=== PATIENT | male | born 1950 | race Caucasian/White ===

== ENCOUNTER 2017-06-06 18:36 | Emergency (ER) | payer OTHER ==
--- NOTE | 2017-06-06 19:06 | ERPHSYRPT ---
- History of Present Illness Time Seen by Provider: 06/06/17 18:55 Source: patient Exam Limitations: no limitations Patient Subjective Stated Complaint: "I pinched my finger with some plyers about 30 minutes ago. 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 Occurred: just prior to arrival Allergies/Adverse Reactions: No Known Drug Allergies Allergy (Unverified 06/06/17 18:47) Home Medications: Atorvastatin Calcium 10 mg PO DAILY 06/06/17 [History] Doxazosin Mesylate 2 mg [Cardura 2 mg] 2 mg PO DAILY 06/06/17 [History] Lisinopril 10 mg PO DAILY 06/06/17 [History] Hx Tetanus, Diphtheria Vaccination/Date Given: No - Review of Systems Skin: Other (LACERATION TO LEFT RING FINGER) - Past Medical History Neurological History: No Pertinent History ENT History: No Pertinent History Cardiac History: High Cholesterol, Hypertension Respiratory History: No Pertinent History Endocrine Medical History: No Pertinent History Musculoskeletal History: Arthritis GI Medical History: No Pertinent History History: Other Other Medical History: enlarged prostate - Past Surgical History Past Surgical History: Yes Musculoskeletal: Other Other Surgical History: right shoulder - Social History Smoking Status: Never smoker Drug Use: none - Nursing Vital Signs Nursing Vital Signs: Initial Vital Signs Temperature 98.8 F 06/06/17 18:41 Pulse Rate 82 06/06/17 18:41 Blood Pressure 178/81 06/06/17 18:41 O2 Sat by Pulse Oximetry 97 06/06/17 18:41 Pain Scale Pain Intensity 1 - Physical Exam General Appearance: alert Shoulder Exam: normal ROM Elbow/Forearm Exam: normal ROM Wrist Exam: normal ROM Hand Exam: normal ROM, laceration (1 CM LACERATION TO THE PAD OF THE LEFT RING FINGER) Neuro/Tendon Exam: normal sensation Mental Status Exam: alert, cooperative SpO2 Interpretation: normal SpO2: 97 Oxygen Delivery: Room Air Procedures - Laceration/Wound Repair Left Finger Wound Location: Left, hand (RING FINGER) Wound Length (cm): 1 Wound's Depth, Shape: superficial Wound Explored: clean Irrigated: Yes Hibiclens Prep: Yes Anesthesia: 1% Lidocaine Volume Anesthetic (ccs): 1 Wound Repaired With: sutures Suture Size/Type: 4-0, prolene Number of Sutures: 4 Layer Closure?: No - Course Nursing assessment & vital signs reviewed: Yes Ordered Tests: Active Orders 24 hr Category Date Time Status Prepare for Sutures STAT Care 06/06/17 19:00 Active Sutures STAT Care 06/06/17 19:01 Active Wound Care STAT Care 06/06/17 19:00 Active Medication Summary Discontinued Medications Generic Name Dose Route Start Last Admin Trade Name Freq PRN Reason Stop Dose Admin Bacitracin 0.9 gm 06/06/17 19:00 06/06/17 19:21 Baciguent Packet TP 06/06/17 19:01 1 gm STAT ONE Administration Bacitracin Confirm 06/06/17 19:17 Baciguent Packet Administered 06/06/17 19:18 Dose 1 gm .ROUTE .STK-MED ONE Cephalexin HCl 500 mg 06/06/17 19:02 06/06/17 19:21 Keflex 500 Mg PO 06/06/17 19:03 500 mg STAT ONE Administration Cephalexin HCl Confirm 06/06/17 19:18 Keflex 500 Mg Administered 06/06/17 19:19 Dose 500 mg .ROUTE .STK-MED ONE Diphtheria/Tetanus/Acell Pertussis 0.5 ml 06/06/17 19:00 06/06/17 19:24 Adacel Vial IM 06/06/17 19:01 0.5 ml .ONCE ONE Administration Diphtheria/Tetanus/Acell Pertussis Confirm 06/06/17 19:18 Adacel Vial Administered 06/06/17 19:19 Dose 0.5 ml IM .STK-MED ONE Lidocaine HCl 5 ml 06/06/17 19:00 06/06/17 19:22 Xylocaine 1% Hcl 20 Ml Mdv IJ 06/06/17 19:01 5 ml STAT ONE Administration Lidocaine HCl Confirm 06/06/17 19:18 Xylocaine 1% Hcl 20 Ml Mdv Administered 06/06/17 19:19 Dose 1 ml .ROUTE .STK-MED ONE - Departure Time of Disposition: 19:43 Departure Disposition: Home Clinical Impression: 1 CM LACERATION TO LEFT RING FINGER Condition: Stable Critical Care Time: No Referrals: TONIO TREVIZO [Primary Care Provider] - Instructions: Care for a Laceration After Repair Additional Instructions: FOLLOW UP WITH PRIVATE DOCTOR TOMORROW. KEEP CLEAN & DRY. NEOSPORIN & BANDAGE DAILY TO LEFT RING FINGER WOUND FOR THE NEXT 10 DAYS. HAVE SUTURES REMOVED IN 10 DAYS. Prescriptions: Cephalexin Monohydrate [Keflex] 500 mg PO TID #20 capsule
[2017-06-06] MEDS ORDERED: BACIGUENT PACKET ONE (19:17)
[2017-06-06] MEDS ORDERED: KEFLEX 500 MG ONE (19:18)
[2017-06-06] MEDS ORDERED: Adacel Vial IM ONE (19:18)
[2017-06-06] MEDS ORDERED: XYLOCAINE 1% HCL 20 ML MDV ONE (19:18)
[2017-06-06] MEDS: KEFLEX 500 MG PO ONE (19:21)
[2017-06-06] MEDS: BACIGUENT PACKET TP ONE (19:21)
[2017-06-06] MEDS: XYLOCAINE 1% HCL 20 ML MDV IJ ONE (19:22)
[2017-06-06] MEDS: Adacel Vial IM ONE (19:24)
[2017-06-06 20:12] VITALS: BP 168/78; PULSE 80; O2SAT 99
== END 2017-06-06 20:00 | disposition home or self-care (01) ==
LOC: ED 18:36
PROC: 0HQGXZZ Repair Left Hand Skin, External Approach (ICD-10-PCS; principal; 2017-06-06)
DX: S61.215A Laceration without foreign body of left ring finger without damage to nail, initial encounter (principal); W27.8XXA Contact with other nonpowered hand tool, initial encounter
CPT/HCPCS: 12001; 90471; 90715; 99283; 99284; A9270-GY

== ENCOUNTER 2017-11-22 03:19 | Emergency (ER) | payer SELFPAY ==
[2017-11-22] MEDS ORDERED: Sodium Chloride 0.9% 1000 ML 1,000 ML IV SCH (03:45)
[2017-11-22] MEDS ORDERED: Sodium Chloride 0.9% 1000 ML 1,000 ML ONE (03:49)
--- NOTE | 2017-11-22 03:50 | ERPHSYRPT ---
- History of Present Illness Time Seen by Provider: 11/22/17 03:35 Source: patient, family () Exam Limitations: no limitations Patient Subjective Stated Complaint: SOB Triage Nursing Assessment: Pt presents to the ED by EMS with complaints of SOB. Pt had mitral valve repair at [facility] on 11/08/2017 and states he has had SOB since surgery. Pt seen by PCP yesterday for same. Pt states worsening tonight. Pt A&O x4, no distress noted. Pt also complaints of dizziness, denies pain. Physician History: TWO WEEKS AGO PT HAD MITRAL VALVE REPAIR AT [facility] AND SINCE HAS HAD DYSPNEA ON EXERTION. FOR THE PAST 5 HOURS PT HAS HAD GENERALIZED WEAKNESS, DIAPHORESIS, DISEQUILIBRIUM AND WORSENING DYSPNEA. PT DENIES NAUSEA, VOMITING, ABDOMINAL PAIN, DIARRHEA, HEADACHE, NUMBNESS. LAST BM WAS YESTERDAY & WNL. Allergies/Adverse Reactions: No Known Drug Allergies Allergy (Verified 11/22/17 03:43) Home Medications: Atorvastatin Calcium 10 mg PO DAILY 06/06/17 [History] Doxazosin Mesylate 2 mg [Cardura 2 mg] 8 mg PO DAILY 06/06/17 [History] Lisinopril 5 mg PO DAILY 06/06/17 [History] Aspirin EC 325 mg [Ecotrin 325 MG] 325 mg PO DAILY 11/22/17 [History] Metoprolol Tartrate 25 mg [Lopressor 25MG Tab] 25 mg PO BID 11/22/17 [ History] Hx Tetanus, Diphtheria Vaccination/Date Given: Yes Hx Influenza Vaccination/Date Given: No Hx Pneumococcal Vaccination/Date Given: Yes - Review of Systems Constitutional: Weakness (GENERALIZED), No Fever, No Chills Respiratory: Dyspnea on Exertion (SUÁREZ) Abdominal/Gastrointestinal: No Abdominal Pain, No Nausea, No Vomiting, No Diarrhea Neurological: Dizziness, No Headache Endocrine: Excessive Sweating All Other Systems: Reviewed and Negative - Past Medical History Neurological History: No Pertinent History ENT History: No Pertinent History Cardiac History: High Cholesterol, Hypertension Respiratory History: No Pertinent History Endocrine Medical History: No Pertinent History Musculoskeletal History: Arthritis GI Medical History: No Pertinent History History: Other Other Medical History: enlarged prostate - Past Surgical History Past Surgical History: Yes Respiratory: Chest Surgery Musculoskeletal: Other Other Surgical History: right shoulder, Mitral Valve repair - Social History Smoking Status: Never smoker Exposure to second hand smoke: No Drug Use: none Patient Lives Alone: No - Nursing Vital Signs Nursing Vital Signs: Initial Vital Signs Temperature 98.8 F 11/22/17 03:21 Pulse Rate 129 H 11/22/17 03:21 Respiratory Rate 20 11/22/17 03:21 Blood Pressure 112/81 11/22/17 03:21 O2 Sat by Pulse Oximetry 99 11/22/17 03:21 Pain Scale Pain Intensity 0 - Physical Exam General Appearance: alert Eye Exam: PERRL/EOMI Ears, Nose, Throat Exam: TMs normal, pharynx normal, moist mucous membranes Neck Exam: normal inspection Respiratory Exam: other (MINIMALLY DECREASED BREATH SOUNDS OVER RIGHT POSTERIOR PLASENCIA.) Cardiovascular Exam: tachycardia Gastrointestinal/Abdomen Exam: soft, normal bowel sounds Back Exam: normal range of motion Extremity Exam: normal inspection, No pedal edema Neurologic Exam: alert, cooperative Skin Exam: other (HEALING INCISIONS ON CHEST) SpO2 Interpretation: normal SpO2: 99 Oxygen Delivery: Room Air - Course Nursing assessment & vital signs reviewed: Yes EKG Interpreted by Me: RATE ([id number]), Sinus Tach, NORMAL AXIS, Non-specific ST Changes - Radiology Exams Chest X-ray Interpretation: Interpreted by me (INFILTRATE RIGHT LUNG) Ordered Tests: Active Orders 24 hr Category Date Time Status EKG-ER Only STAT Care 11/22/17 03:44 Active IV Insertion STAT Care 11/22/17 03:44 Active Oxygen-ED Only NASAL CANNULA 4 lpm Care 11/22/17 03:44 Active Pulse Oximetry (ED) STAT Care 11/22/17 03:44 Active CHEST 1 VIEW (PORTABLE) Stat Exams 11/22/17 03:45 Taken AMYLASE Stat Lab 11/22/17 04:01 Completed BLOOD CULTURE Stat Lab 11/22/17 04:32 Received CBC W DIFF Stat Lab 11/22/17 04:01 Completed CMP Stat Lab 11/22/17 04:01 Completed CULTURE,SPUTUM Stat Lab 11/22/17 04:18 Uncollected D-DIMER QUANTITATION Stat Lab 11/22/17 04:01 Completed LIPASE Stat Lab 11/22/17 04:01 Completed MAGNESIUM Stat Lab 11/22/17 04:01 Completed NT PRO BNP Stat Lab 11/22/17 04:01 Completed PROTIME WITH INR Stat Lab 11/22/17 04:01 Completed PTT Stat Lab 11/22/17 04:01 Completed STREP SCREEN-BETA A Stat Lab 11/22/17 04:19 Uncollected TROPONIN Q3H Lab 11/22/17 04:01 Completed TROPONIN Q3H Lab 11/22/17 06:45 Ordered TROPONIN Q3H Lab 11/22/17 09:45 Ordered TROPONIN Q3H Lab 11/22/17 12:45 Ordered TROPONIN Q3H Lab 11/22/17 15:45 Ordered Respiratory Nebulizer STAT RT 11/22/17 04:25 Completed Medication Summary Generic Name Dose Route Start Last Admin Trade Name Freq PRN Reason Stop Dose Admin Sodium Chloride 1,000 mls @ 100 mls/hr 11/22/17 03:45 11/22/17 03:51 Sodium Chloride 0.9% 1000 Ml IV 12/22/17 03:44 100 mls/hr .Q10H DONALD Administration Azithromycin 500 mg in 250 mls @ 250 mls/hr 11/22/17 04:18 11/22/17 04:55 Zithromax 500 Mg/ 250 Ml Nacl Premix IV 11/22/17 05:17 250 mls/hr STAT STA Administration Discontinued Medications Generic Name Dose Route Start Last Admin Trade Name Freq PRN Reason Stop Dose Admin Ceftriaxone Sodium/Dextrose 1 g in 50 mls @ 100 mls/hr 11/22/17 04:18 04:25 Rocephin 1 Gm-D5w 50 Ml Bag IV 11/22/17 04:47 100 mls/hr STAT STA Administration Ceftriaxone Sodium/Dextrose Confirm 11/22/17 04:22 Rocephin 1 Gm-D5w 50 Ml Bag Administered 11/22/17 04:23 Dose 1 g in 50 mls @ ud IV .STK-MED ONE Azithromycin Confirm 11/22/17 04:50 Zithromax 500 Mg/ 250 Ml Nacl Premix Administered 11/22/17 04:51 Dose 500 mg in 250 mls @ ud IV .STK-MED ONE Levalbuterol HCl 1.25 mg 11/22/17 04:18 11/22/17 04:30 Xopenex 1.25 Mg/0.5 Ml Ud Nebule IH 11/22/17 04:19 1.25 mg STAT ONE Administration Levalbuterol HCl Confirm 11/22/17 04:25 Xopenex 1.25 Mg/0.5 Ml Ud Nebule Administered 11/22/17 04:26 Dose 1.25 mg IH .STK-MED ONE Sodium Chloride Confirm 11/22/17 04:25 Sodium Chloride 3 Ml Ud Nebules Administered 11/22/17 04:26 Dose 3 ml IH .STK-MED ONE Lab/Rad Data: Laboratory Result Diagrams 11/22/17 04:01 11/22/17 04:01 Laboratory Results 11/22/17 11/22/17 11/22/17 Range/Units 04:01 04:01 04:01 WBC (4.0-10.5) K/mm3 RBC (4.1-5.6) M/mm3 Hgb (12.5-18.0) gm/dl Hct (42-50) % MCV (78-100) fl MCH (26-32) pg MCHC (32-36) g/dl RDW (11.5-14.0) % Plt Count (150-450) K/mm3 MPV (6-9.5) fl Gran % (36.0-66.0) % Lymphocytes % (24.0-44.0) % Monocytes % (0.0-12.0) % Eosinophils % (0.00-5.0) % Basophils % (0.0-0.4) % Basophils # (0-0.4) INR 1.10 (0.8-3.0) APTT 30.2 (24.1-36.1) SECONDS D-Dimer 5387.99 H* (0-500) ng/mL Sodium 142 (136-145) mEq/L Potassium 4.9 (3.5-5.1) mEq/L Chloride 106 (98-107) mEq/L Carbon Dioxide 30.6 (21-32) mEq/L Anion Gap 10.1 (5-15) MEQ/L BUN 24 H (9-20) mg/dL Creatinine 1.20 (0.55-1.30) mg/dl Estimated GFR > 60 ML/MIN Glucose 145 H (70-110) MG/DL Calcium 9.0 (8.5-10.1) mg/dL Magnesium 2.0 (1.8-2.4) mg/dL Total Bilirubin 0.30 (0.2-1.0) mg/dL AST 47 H (15-37) U/L ALT 104 H (12-78) U/L Alkaline Phosphatase 72 (46-116) U/L Troponin I 0.032 (0.000-0.056) ng/ml NT-Pro-B Natriuret Pep 1470 H (0-125) pg/ml Serum Total Protein 6.8 (6.4-8.2) gm/dL Albumin 2.6 L (3.4-5.0) g/dL Amylase 51 (25-115) U/L Lipase 94 (73-393) U/L 11/22/17 Range/Units 04:01 WBC 12.6 H (4.0-10.5) K/mm3 RBC 3.32 L (4.1-5.6) M/mm3 Hgb 10.0 L (12.5-18.0) gm/dl Hct 31.3 L (42-50) % MCV 94.3 (78-100) fl MCH 30.1 (26-32) pg MCHC 31.9 L (32-36) g/dl RDW 12.7 (11.5-14.0) % Plt Count 306 (150-450) K/mm3 MPV 9.1 (6-9.5) fl Gran % 86.5 H (36.0-66.0) % Lymphocytes % 5.8 L (24.0-44.0) % Monocytes % 6.5 (0.0-12.0) % Eosinophils % 1.0 (0.00-5.0) % Basophils % 0.2 (0.0-0.4) % Basophils # 0.02 (0-0.4) INR (0.8-3.0) APTT (24.1-36.1) SECONDS D-Dimer (0-500) ng/mL Sodium (136-145) mEq/L Potassium (3.5-5.1) mEq/L Chloride (98-107) mEq/L Carbon Dioxide (21-32) mEq/L Anion Gap (5-15) MEQ/L BUN (9-20) mg/dL Creatinine (0.55-1.30) mg/dl Estimated GFR ML/MIN Glucose (70-110) MG/DL Calcium (8.5-10.1) mg/dL Magnesium (1.8-2.4) mg/dL Total Bilirubin (0.2-1.0) mg/dL AST (15-37) U/L ALT (12-78) U/L Alkaline Phosphatase (46-116) U/L Troponin I (0.000-0.056) ng/ml NT-Pro-B Natriuret Pep (0-125) pg/ml Serum Total Protein (6.4-8.2) gm/dL Albumin (3.4-5.0) g/dL Amylase (25-115) U/L Lipase (73-393) U/L - Progress Discussed with : Other (SPOKE WITH DR MALDONADO(HOSPITALIST)([id number]) WHO ACCEPTED PT FOR TRANSFER TO [facility] A DIRECT ADMISSION.) - Departure Time of Disposition: 05:08 Departure Disposition: Transfer ([facility]) Clinical Impression: TACHYCARDIA, PNEUMONIA, ELEVATED D-DIMER Condition: Stable Critical Care Time: No Referrals: TONIO TREVIZO [Primary Care Provider] -
[2017-11-22 04:06] LABS: BASOPHIL % 0.2 % (0.0-0.4); Basophil (Absolute #) 0.02 (0-0.4); Eosinophil (Absolute #) 0.12 (0-0.5); Granulocytes % 86.5 % (36.0-66.0); Hematocrit 31.3 % (42-50); Lymphocyte (Absolute #) 0.73 (1.0-4.6); Lymphocytes % 5.8 % (24.0-44.0); Mean Cell Volume 94.3 fl (78-100); Mean Corpuscular Hemoglobin 30.1 pg (26-32); Mean Corpuscular Hgb Concent. 31.9 g/dl (32-36); Mean Platelet Volume 9.1 fl (6-9.5); Monocyte (Absolute #) 0.82 (0.0-1.3); Monocytes % 6.5 % (0.0-12.0); Platelet Count 306 K/mm3 (150-450); Red Blood Count 3.32 M/mm3 (4.1-5.6); Red Cell Distribution Width 12.7 % (11.5-14.0); White Blood Count 12.6 K/mm3 (4.0-10.5)
[2017-11-22] MEDS ORDERED: Zithromax 500 MG/ 250 ML NaCl Premix 500 MG/250 ML IVPB IV STA (04:18)
[2017-11-22] MEDS ORDERED: Xopenex 1.25 MG/0.5 ML UD NEBULE IH ONE ×2 (04:18→04:25)
[2017-11-22] MEDS ORDERED: ROCEPHIN 1 Gm-D5w 50 ml Bag** 1 G/50 ML IVPB IV STA (04:18)
[2017-11-22 04:22] LABS: INR 1.1 (0.8-3.0)
[2017-11-22] MEDS ORDERED: ROCEPHIN 1 Gm-D5w 50 ml Bag** 1 G/50 ML IVPB IV ONE (04:22)
[2017-11-22 04:25] LABS: PTT 30.2 SECONDS (24.1-36.1)
[2017-11-22] MEDS ORDERED: Sodium Chloride 3 ML UD NEBULES IH ONE (04:25)
[2017-11-22 04:37] LABS: ALBUMIN 2.6 g/dL (3.4-5.0); ALKALINE PHOSPHATASE 72 U/L (46-116); AMYLASE 51 U/L (25-115); ANION GAP 10.1 MEQ/L (5-15); BLOOD UREA NITROGEN 24 mg/dL (9-20); CHLORIDE 106 mEq/L (98-107); Carbon Dioxide 30.6 mEq/L (21-32); EST GLOMERULAR FILTRATION RATE > 60 ML/MIN; Glucose 145 MG/DL (70-110); LIPASE 94 U/L (73-393); NT PRO BNP 1470 pg/ml (0-125); Potassium 4.9 mEq/L (3.5-5.1); SGOT/AST 47 U/L (15-37); SGPT/ALT 104 U/L (12-78); SODIUM 142 mEq/L (136-145); Total Protein 6.8 gm/dL (6.4-8.2)
[2017-11-22 04:38] LABS: D-DIMER QUANTITATION 5387.99 ng/mL (0-500)
[2017-11-22 04:39] VITALS: PULSE 130
[2017-11-22] MEDS ORDERED: Zithromax 500 MG/ 250 ML NaCl Premix 500 MG/250 ML IVPB IV ONE (04:50)
[2017-11-22 05:01] VITALS: BP 106/69
[2017-11-22 05:06] VITALS: O2SAT 99
[2017-11-22 05:09] LABS: INFLUENZA A NEGATIVE (NEGATIVE); INFLUENZA B NEGATIVE (NEGATIVE); RESPIRATORY SYNCTIAL VIRUS NEGATIVE (Negative)
--- NOTE | 2017-11-22 08:49 | XRAY ---
Indication: Tachycardia. Comparison: None Portable chest demonstrates right base infiltrate versus atelectasis. Remaining heart and lungs unremarkable. Bony thorax intact with mild degenerative changes.
== END 2017-11-22 06:02 | disposition short-term general hospital (02) ==
LOC: ED 03:19
DX: R00.0 Tachycardia, unspecified (principal); J18.9 Pneumonia, unspecified organism; R79.1 Abnormal coagulation profile; I10 Essential (primary) hypertension; M19.90 Unspecified osteoarthritis, unspecified site; Z79.899 Other long term (current) drug therapy
CPT/HCPCS: 36415; 71045; 80053; 82150; 83690; 83735; 83880; 84484; 85025; 85379; 85610; 85730; 87040; 87631; 93005; 94640; 96365; 96366; 99284; J0456; J0696; A9270-GY

== ENCOUNTER 2023-02-14 09:55 | Observation (INO) | payer MEDICARE ==
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
[2023-02-14] MEDS ORDERED: BABY ASPIRIN 81 MG CHEW PO ONE (13:16)
[2023-02-14] MEDS ORDERED: KEPPRA PO ONE (13:17)
[2023-02-14] MEDS ORDERED: BABY ASPIRIN 81 MG CHEW ONE (13:20)
[2023-02-14] MEDS ORDERED: TYLENOL 325 MG PO PRN (14:38)
[2023-02-14] MEDS ORDERED: HUMULIN R SQ PRN (14:38)
[2023-02-14] MEDS ORDERED: Zofran 4 MG/2 ML VIAL IV PRN (14:38)
--- NOTE | 2023-02-14 16:36 | XRAY ---
Indication: CVA. Two-dimensional sonogram and color Doppler imaging of the carotid arteries in the neck performed. Comparison: None Examination of the right carotid circulation demonstrates widely patent common carotid, carotid bulb, internal carotid, and external carotid arteries. PSV of the CCA is 99 cm/s. PSV of the ICA is 82 cm/s. ICA/CCA ratio is 0.8. Normal antegrade vertebral artery flow. Examination of the left carotid circulation also demonstrates widely patent common carotid, carotid bulb, internal carotid, and external carotid arteries. PSV of the CCA is 90 cm/s. PSV of the ICA is 83 cm/s. ICA/CCA ratio is 0.9. Normal antegrade vertebral artery flow. Impression: Widely patent left and right carotid arteries of the neck. Velocity measurements and ratios are also negative for hemodynamically significant flow-limiting stenosis.
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
[2023-02-14] MEDS ORDERED: APRESOLINE 20 MG/ML INJ IV PRN (16:54)
[2023-02-14] MEDS: KEPPRA PO SCH (21:07)
[2023-02-14] MEDS: Lopressor 25MG Tab PO SCH (21:07)
[2023-02-15 04:55] LABS: Absolute Neutrophil Ct (ANC) 5.03 x10^3/uL (1.4-6.9); BASOPHIL % 0.3 % (0.0-0.4); Basophil (Absolute #) 0.02 x10^3/uL (0-0.4); Eosinophil % 2.2 % (0.00-5.0); Eosinophil (Absolute #) 0.15 x10^3/uL (0-0.5); Hematocrit 39.9 % (42-50); Hemoglobin 13.1 g/dL (12.5-18.0); IMMATURE GRAN # 0.01 x10^3u/L (0.00-0.03); IMMATURE GRAN % 0.1 % (0.00-0.4); Lymphocytes % 17.3 % (24.0-44.0); Mean Cell Volume 94.1 fL (78-100); Mean Corpuscular Hemoglobin 30.9 pg (26-32); Mean Corpuscular Hgb Concent. 32.8 g/dL (32-36); Mean Platelet Volume 10.4 fL (7.5-11.0); Monocyte (Absolute #) 0.52 x10^3/uL (0.0-1.3); Monocytes % 7.5 % (0.0-12.0); Neutrophil % 72.6 % (36.0-66.0); Platelet Count 134 x10^3/uL (150-450); Red Blood Count 4.24 x10^6/uL (4.1-5.6); Red Cell Distribution Width 12.9 % (11.5-14.0); White Blood Count 6.9 x10^3/uL (4.0-10.5)
[2023-02-15 05:23] LABS: ALBUMIN 3.7 g/dL (3.5-5.0); ALKALINE PHOSPHATASE 69 U/L (38-126); ANION GAP 14.2 MEQ/L (5-15); BLOOD UREA NITROGEN 20 mg/dL (9-20); CHLORIDE 103 mmol/L (98-107); Carbon Dioxide 31 mmol/L (22-30); Creatinine 1 0.82 mg/dL (0.66-1.25); EST GLOMERULAR FILTRATION RATE > 60.0 ML/MIN; Glucose 100 mg/dL (74-106); Potassium 5.2 mmol/L (3.5-5.1); SGOT/AST 25 U/L (17-59); SGPT/ALT 22 U/L (0-50); SODIUM 143 mmol/L (137-145); Total Protein 6.7 g/dL (6.3-8.2)
[2023-02-15 05:29] LABS: Risk Ratio 3.6
[2023-02-15] MEDS: KEPPRA PO SCH (08:21)
[2023-02-15] MEDS: Lopressor 25MG Tab PO SCH (08:22)
[2023-02-15] MEDS ORDERED: Flomax 0.4 MG PO SCH (10:00)
[2023-02-15] MEDS ORDERED: BABY ASPIRIN 81 MG CHEW PO SCH (10:00)
[2023-02-15] MEDS ORDERED: CARDURA 2 MG PO SCH (10:00)
[2023-02-15] MEDS ORDERED: NON-FORMULARY ITEM (Atorvastatin Calcium [Atorvastatin Calcium] 10 MG Tablet) PO SCH (10:00)
[2023-02-15] MEDS ORDERED: LIPITOR 40MG PO SCH (10:00)
--- NOTE | 2023-02-15 12:09 | PCM.NOTE ---
Date and Time: 02/15/23 1203 Subjective Assessment: Pt seen at approx 08:20 today. Denies any loss of consciousness, weakness, or paresthesias here. PT/OT had checked in on patient and will return to evaluate. Did not require any PRN hydralazine overnight (although BP 188/84 at 1944 yesterday). - Review of Systems Constitutional: No Fever Abdominal/Gastrointestinal: No Vomiting Objective Exam General Appearance: no apparent distress, alert Neurologic Exam: cooperative, normal mood/affect Skin Exam: normal color, warm, dry, No rash Eye Exam: eyes nml inspection Ears, Nose, Throat Exam: moist mucous membranes Neck Exam: normal inspection Respiratory Exam: normal breath sounds, lungs clear, No crackles/rales, No rhonchi, No wheezing Cardiovascular Exam: regular rate/rhythm, normal heart sounds, No murmur Gastrointestinal/Abdomen Exam: soft, normal bowel sounds, No tenderness, No distention, No mass, No guarding, No rebound Extremity Exam: normal inspection, No pedal edema, No swelling Back Exam: normal inspection, No rash OBJECTIVE DATA Vital Signs: Vital Signs - 24 hr Temp Pulse Resp BP BP Pulse Ox 02/15/23 11:14 97.1 F 56 L 16 166/98 99 02/15/23 07:47 98 02/15/23 07:34 95.5 F 67 16 177/91 98 02/15/23 04:00 97.9 F 56 L 18 144/69 96 02/14/23 23:40 97.8 F 64 18 138/64 97 02/14/23 19:44 97.3 F 82 20 188/84 98 02/14/23 18:53 96 02/14/23 17:27 99 02/14/23 14:40 97.1 F 62 16 174/79 99 02/14/23 14:38 97 02/14/23 13:00 159/94 02/14/23 12:30 159/85 97 Pain Assessment - Last Documented Pain Intensity 0 Pain Scale Used 0-10 Pain Scale Intake and Output: Intake & Output 02/13/23 02/14/23 02/15/23 02/16/23 11:59 11:59 11:59 11:59 Intake Total 1840 Balance 1840 Weight 131.542 kg 133.8 kg Lab Results: Lab Results-Last 24 Hours 02/14/23 02/14/23 02/15/23 Range/Units Unknown Unknown 04:30 WBC 6.9 (4.0-10.5) x10^3/uL RBC 4.24 (4.1-5.6) x10^6/uL Hgb 13.1 (12.5-18.0) g/dL Hct 39.9 L (42-50) % MCV 94.1 (78-100) fL MCH 30.9 (26-32) pg MCHC 32.8 (32-36) g/dL RDW 12.9 (11.5-14.0) % Plt Count 134 L (150-450) x10^3/uL MPV 10.4 (7.5-11.0) fL Gran % 72.6 H (36.0-66.0) % Immature Gran % (Auto) 0.1 (0.00-0.4) % Nucleat RBC Rel Count 0.0 (0.00-0.1) % Eos # (Auto) 0.15 (0-0.5) x10^3/uL Immature Gran # (Auto) 0.01 (0.00-0.03) x10^3u/L Absolute Lymphs (auto) 1.20 (1.0-4.6) x10^3/uL Absolute Monos (auto) 0.52 (0.0-1.3) x10^3/uL Absolute Nucleated RBC 0.00 (0.00-0.01) x10^3u/L Lymphocytes % 17.3 L (24.0-44.0) % Monocytes % 7.5 (0.0-12.0) % Eosinophils % 2.2 (0.00-5.0) % Basophils % 0.3 (0.0-0.4) % Absolute Granulocytes 5.03 (1.4-6.9) x10^3/uL Basophils # 0.02 (0-0.4) x10^3/uL Sodium (137-145) mmol/L Potassium (3.5-5.1) mmol/L Chloride (98-107) mmol/L Carbon Dioxide (22-30) mmol/L Anion Gap (5-15) MEQ/L BUN (9-20) mg/dL Creatinine (0.66-1.25) mg/dL Estimated GFR ML/MIN Glucose (74-106) mg/dL Hemoglobin A1c 5.33 (4.5-6.0) % Calcium (8.4-10.2) mg/dL Total Bilirubin (0.2-1.3) mg/dL AST (17-59) U/L ALT (0-50) U/L Alkaline Phosphatase (38-126) U/L Serum Total Protein (6.3-8.2) g/dL Albumin (3.5-5.0) g/dL Triglycerides (30-150) mg/dL Cholesterol (50-200) mg/dL LDL Cholesterol (30-100) mg/dL HDL Cholesterol (40-60) mg/dL Heart Disease Risk Ratio Vitamin B12 507 (239-931) pg/mL 02/15/23 02/15/23 Range/Units 04:30 04:30 WBC (4.0-10.5) x10^3/uL RBC (4.1-5.6) x10^6/uL Hgb (12.5-18.0) g/dL Hct (42-50) % MCV (78-100) fL MCH (26-32) pg MCHC (32-36) g/dL RDW (11.5-14.0) % Plt Count (150-450) x10^3/uL MPV (7.5-11.0) fL Gran % (36.0-66.0) % Immature Gran % (Auto) (0.00-0.4) % Nucleat RBC Rel Count (0.00-0.1) % Eos # (Auto) (0-0.5) x10^3/uL Immature Gran # (Auto) (0.00-0.03) x10^3u/L Absolute Lymphs (auto) (1.0-4.6) x10^3/uL Absolute Monos (auto) (0.0-1.3) x10^3/uL Absolute Nucleated RBC (0.00-0.01) x10^3u/L Lymphocytes % (24.0-44.0) % Monocytes % (0.0-12.0) % Eosinophils % (0.00-5.0) % Basophils % (0.0-0.4) % Absolute Granulocytes (1.4-6.9) x10^3/uL Basophils # (0-0.4) x10^3/uL Sodium 143 (137-145) mmol/L Potassium 5.2 H (3.5-5.1) mmol/L Chloride 103 (98-107) mmol/L Carbon Dioxide 31 H (22-30) mmol/L Anion Gap 14.2 (5-15) MEQ/L BUN 20 (9-20) mg/dL Creatinine 0.82 (0.66-1.25) mg/dL Estimated GFR > 60.0 ML/MIN Glucose 100 (74-106) mg/dL Hemoglobin A1c (4.5-6.0) % Calcium 9.0 (8.4-10.2) mg/dL Total Bilirubin 0.70 (0.2-1.3) mg/dL AST 25 (17-59) U/L ALT 22 (0-50) U/L Alkaline Phosphatase 69 (38-126) U/L Serum Total Protein 6.7 (6.3-8.2) g/dL Albumin 3.7 (3.5-5.0) g/dL Triglycerides 81 (30-150) mg/dL Cholesterol 140 (50-200) mg/dL LDL Cholesterol 79 (30-100) mg/dL HDL Cholesterol 39 L (40-60) mg/dL Heart Disease Risk Ratio 3.6 Vitamin B12 (239-931) pg/mL Radiology Exams: Radiology Procedures Category Date Time Status CAROTID BILATERAL [US] Stat Exams 02/14/23 14:38 Completed CERVICAL SPINE WO CONTRAST [CT] Stat Exams 02/14/23 10:15 Completed ECHO W/2D AND DOPPLER [US] Routine Exams 02/14/23 14:38 Taken HEAD WITHOUT CONTRAST [CT] Stat Exams 02/14/23 10:15 Completed MRA BRAIN WITHOUT CONTRAST [MRI] Routine Exams 02/15/23 09:00 Ordered MRA NECK WITH CONTRAST [MRI] Routine Exams 02/15/23 09:00 Ordered MRI BRAIN W/O CONTRAST [MRI] Routine Exams 02/15/23 09:00 Ordered Assessment/Plan (1) CVA (cerebral vascular accident) Current Visit: Yes Status: Acute Qualifiers: CVA mechanism: occlusion Precerebral and cerebral artery: unspecified cerebral artery Qualified Code(s): I63.50 - Cerebral infarction due to unspecified occlusion or stenosis of unspecified cerebral artery Assessment & Plan: On 81mg ASA per teleneurology. posterior temporolateral ischemia with a very thin area of hemorrhage on CT scan. MRI/MRA brain to be done today. Carotid doppler and echo pending. Code(s): I63.9 - CEREBRAL INFARCTION, UNSPECIFIED (2) Seizure Current Visit: Yes Status: Acute Assessment & Plan: EEG today. On Keppra. Code(s): R56.9 - UNSPECIFIED CONVULSIONS
--- NOTE | 2023-02-15 13:54 | XRAY ---
Indication: Visual disturbance. Abnormal CT head one day earlier. Stroke. Sagittal, coronal, and axial brain performed without contrast using T1, T2, FLAIR, diffusion, and ADC sequences. Comparison: None Age-appropriate global atrophy with minimal periventricular degenerative micro-ischemia signal bilaterally. Right occipital lobe demonstrates wedge-shaped focus of cortical/subcortical restricted signal measuring at least 3.2 x 5.0 x 6.6 cm favoring acute ischemia. Anterior right parietal lobe demonstrates a 5 mm focus of cortical acute ischemia. No acute hemorrhage, mass effect, or midline shifting. Fourth ventricle is midline without hydrocephalus. 7/8 cranial nerve complex bilaterally symmetric. Normal flow void signal within the major intracerebral circulation. Normal appearing craniocervical junction and sella turcica. Visualized paranasal sinuses are clear. Impression: 1. Large focus acute ischemia right occipital lobe and tiny focus acute ischemia right anterior parietal lobe as detailed. No acute hemorrhage/mass effect. 2. Atrophy and degenerative micro-ischemia within normal limits for patient's age.
--- NOTE | 2023-02-15 14:45 | XRAY ---
Indication: Visual disturbance. Stroke. Conventional contrast enhanced MRA carotid arteries of the neck performed. 20 cc Dotarem contrast used. Comparison: None Visualized common carotid, carotid bulb, internal carotid, and external carotid arteries are normal in MRA appearance bilaterally. Vertebral arteries are bilaterally symmetric without critical stenosis or obstruction. Impression: Negative MRA carotid arteries of the neck with contrast. See carotid ultrasound one day earlier.
[2023-02-15 16:18] VITALS: BP 189/88; PULSE 57; O2SAT 98
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
--- NOTE | 2023-02-15 17:15 | XRAY ---
Indication: Visual disturbance. Stroke. Multi-slab 3-D [id number] MRA [place] performed. Comparison: None Visualized distal internal carotid arteries are bilaterally symmetric without critical stenosis, obstruction, or AV malformation. Normal carotid terminus with normal branching A1 and M1 segments bilaterally. More distal anterior cerebral and middle cerebral arteries are normal in MRA appearance. Normal MRA appearance to the anterior communicating and left/right posterior communicating arteries. Posterior circulation demonstrates distal vertebral arteries to be normal in course and caliber with the right larger in caliber. Remaining basilar, left/right posterior cerebral, left/right superior cerebellar, and left/right anterior inferior cerebellar arteries are normal in MRA appearance. Impression: Negative MRA [place].
[2023-02-15] MEDS ORDERED: Zocor 10MG PO SCH (22:00)
== END 2023-02-15 18:31 | disposition home or self-care (01) ==
LOC: ED 09:55 → MED SURG 14:35
PROVIDERS: ADMIT Family Medicine; ATTEND Family Medicine
DX: I63.9 Cerebral infarction, unspecified (principal); R56.9 Unspecified convulsions; E78.5 Hyperlipidemia, unspecified; I10 Essential (primary) hypertension; R73.03 Prediabetes; H53.122 Transient visual loss, left eye; Z79.899 Other long term (current) drug therapy; Z20.828 Contact with and (suspected) exposure to other viral communicable diseases
CPT/HCPCS: 36000; 36415; 70450; 70544; 70548; 70551; 72125; 80053; 80061; 82607; 83036; 83721; 85025; 93005; 93268; 93306; 93880; 94760; 95812; 97165; 99285; 99291; G0378; A9270-GY

== ENCOUNTER 2024-05-19 14:48 | Emergency (ER) | payer MEDICARE, OTHER ==
[2024-05-19 15:05] VITALS: TEMP 97; O2SAT 97
[2024-05-19] MEDS: Kenalog-40 IM ONE (15:23)
[2024-05-19] MEDS ORDERED: Kenalog-40 ONE (15:23)
--- NOTE | 2024-05-19 15:31 | ERPHSYRPT ---
- History of Present Illness Time Seen by Provider: 05/19/24 14:52 Source: patient Exam Limitations: no limitations Patient Subjective Stated Complaint: pt alert, walked in, resp easy. skin w/d/p. has red rash to ankles and feet, co itching Triage Nursing Assessment: pt here for rash or insect bites to ankles and feet for a couple days now, pt states he thinks it is oak mites Physician History: 74-year-old male presented in the ER with complaint of bilateral ankle/lower legs insect bite while he was working outside in the yard 3 to 4 days ago. Patient reports increased itching and burning sensation. Has been taking [id number] medication with no significant relief. No difficulty breathing or swallowing. Allergies/Adverse Reactions: No Known Drug Allergies Allergy (Verified 05/19/24 14:54) Home Medications: Doxazosin Mesylate 2 mg [Cardura 2 mg] 4 mg PO DAILY 06/06/17 [History] Metoprolol Tartrate 25 mg [Lopressor 25MG Tab] 25 mg PO BID 11/22/17 [History] Metformin HCl 500 mg [Glucophage 500 MG] 1 tab PO DAILY 02/14/23 [History] Tamsulosin HCl 0.4 mg [Flomax 0.4 MG] 1 tab PO DAILY 02/14/23 [History] Hx Tetanus, Diphtheria Vaccination/Date Given: Yes Hx Influenza Vaccination/Date Given: No Hx Pneumococcal Vaccination/Date Given: No Immunizations Up to Date: Yes Travel Risk - International Travel Have you traveled outside of the country in past 3 weeks: No - Emerging Infectious Disease Are you exhibiting symptoms associated with any current EIDs: No - Review of Systems Constitutional: No Symptoms Ears, Nose, & Throat: No Symptoms Respiratory: No Symptoms Cardiac: No Symptoms Abdominal/Gastrointestinal: No Symptoms Skin: Pruritis, Rash Neurological: No Symptoms Psychological: No Symptoms - Past Medical History Pertinent Past Medical History: Yes Neurological History: Stroke ENT History: Cataracts Cardiac History: Other Respiratory History: No Pertinent History Endocrine Medical History: No Pertinent History Musculoskeletal History: No Pertinent History GI Medical History: No Pertinent History History: No Pertinent History Psycho-Social History: No Pertinent History Male Reproductive Disorders: Prostate Problems Other Medical History: enlarged prostate - Past Surgical History Past Surgical History: Yes Respiratory: Chest Surgery Musculoskeletal: Other Other Surgical History: right shoulder, Mitral Valve repair - Social History Smoking Status: Never smoker Exposure to second hand smoke: No Drug Use: none Patient Lives Alone: No - Social Determinants of Health Will the patient participate in the screening: Declined to provide - Nursing Vital Signs Nursing Vital Signs: Initial Vital Signs Temperature 97 F 05/19/24 15:04 Pulse Rate 89 05/19/24 15:04 Blood Pressure 121/75 05/19/24 15:04 O2 Sat by Pulse Oximetry 97 05/19/24 15:04 Pain Scale Pain Intensity 0 - Physical Exam General Appearance: no apparent distress, alert Eye Exam: PERRL/EOMI Neck Exam: normal inspection, full range of motion Respiratory Exam: normal breath sounds, lungs clear Cardiovascular Exam: regular rate/rhythm, normal heart sounds Extremity Exam: normal range of motion Neurologic Exam: alert, oriented x 3, cooperative Skin Exam: normal color, rash (Distinct bites with minimal erythema around in the lower leg/ankle bilaterally) SpO2 Interpretation: normal SpO2: 97 O2 Delivery: Room Air Ordered Tests: Medication Summary Discontinued Medications Generic Name Dose Route Start Last Admin Trade Name Freq PRN Reason Stop Dose Admin Triamcinolone Acetonide 40 mg 05/19/24 15:11 05/19/24 15:23 Triamcinolone Acetonide 40 Mg/Ml Ml IM 05/19/24 15:12 40 mg STAT ONE Administration Triamcinolone Acetonide Confirm 05/19/24 15:23 Triamcinolone Acetonide 40 Mg/Ml Ml Administered 05/19/24 15:24 Dose 40 mg .ROUTE .STK-MED ONE - Progress Progress: unchanged Progress Note: 05/19/24 15:29 74-year-old is evaluated in ER for bilateral lower extremity insect bite with itching and burning sensation. Lungs clear to auscultation. No spreading since it started but itching getting worse in the same area of bites. Given the shot of Kenalog. Recommended taking Benadryl as needed and outpatient follow-up if needed. Discussed signs symptoms of worsening needing return to ER which she seems understanding. Counseled pt/family regarding: diagnosis, need for follow-up Medical Desision Making - Risk of complications The pt has a mod risk of morbidity or mortality based on: Need for prescription drug management - Departure Departure Disposition: Home Clinical Impression: Insect bites Condition: Stable Critical Care Time: No Referrals: MAVIS RENNER MD [Primary Care Provider] - Follow up with PCP 1 day Instructions: Insect Bites and Stings (DC) Additional Instructions: Take Benadryl as needed. Use topical hydrocortisone if needed. Follow-up with primary care for reevaluation. Return to ER for worsening of rash or if develop fever chills etc.
[2024-05-19 15:51] VITALS: BP 127/63; PULSE 78; RESP 18
== END 2024-05-19 15:51 | disposition home or self-care (01) ==
LOC: ED 14:48
DX: S90.562A Insect bite (nonvenomous), left ankle, initial encounter (principal); S90.561A Insect bite (nonvenomous), right ankle, initial encounter; L29.9 Pruritus, unspecified; Z79.84 Long term (current) use of oral hypoglycemic drugs; Z79.899 Other long term (current) drug therapy
CPT/HCPCS: 96372; 99282; J3301

== ENCOUNTER 2024-08-08 06:03 | Day surgery (SDC) | payer MEDICARE, OTHER ==
[2024-08-08] MEDS ORDERED: Xylocaine-Mpf 2% 5 Ml Vial ONE (07:05)
[2024-08-08] MEDS ORDERED: DIPRIVAN 200 MG/20 ML IV ONE ×2 (07:05→07:18)
[2024-08-08] MEDS ORDERED: Versed 2 MG/2 ML Injection ONE (07:05)
[2024-08-08] MEDS: Lactated Ringers 1,000 ML IV SCH (07:07)
[2024-08-08] MEDS ORDERED: Ephedrine Sulfate 50 MG/ML ONE (07:45)
[2024-08-08 07:53] VITALS: RESP 18
[2024-08-08 08:08] VITALS: O2SAT 95
[2024-08-08 08:11] VITALS: BP 124/56; PULSE 72; TEMP 97.6
--- NOTE | 2024-08-10 10:15 | OP ---
SURGERY DATE/TIME: 08/08/2024 [id number] PREOPERATIVE DIAGNOSIS: Screening colonoscopy. POSTOPERATIVE DIAGNOSIS: Sigmoid colon polyps x3. PROCEDURE: Colonoscopy. SURGEON: Jovani Kline MD. ANESTHESIA: MAC by Fam Kaur CRNA. QUANTITATIVE BLOOD LOSS: Minimal. SPECIMENS: There were 2 hot forceps polypectomies from the sigmoid colon and 1 hot snare polypectomy from the sigmoid colon. DESCRIPTION OF PROCEDURE AND FINDINGS: After informed written consent was obtained, the patient was taken to the endoscopy suite. Digital rectal exam showed normal sphincter tone and no internal lesions. The scope was inserted into the rectum, and sequentially the entire colonic mucosa was traversed. The level of the cecum was reached and verified with direct visualization of the ileocecal valve. Upon withdrawal, careful mucosal inspection revealed no gross abnormalities until the proximal sigmoid colon was reached. There were 2 small sessile polyps in the sigmoid which were grasped with the forceps, cauterized, and removed in their entirety. There was one larger one approximately 40 cm scope , which was encircled with a snare, tightened at the base, cauterized. The polyp was removed, suctioned to the end of the scope, it was too large to pass into the channel. The remainder of the exam was unremarkable. Prior to withdrawal, retroflexion showed no internal lesions. The scope was removed, and the patient was transferred to the recovery room in good condition. He will follow up in 1 week for pathology results.
== END 2024-08-08 08:14 | disposition home or self-care (01) ==
LOC: SDC 06:03
PROVIDERS: ATTEND Family Medicine
DX: Z12.11 Encounter for screening for malignant neoplasm of colon (principal); K63.5 Polyp of colon
CPT/HCPCS: 99100; J2250; J2704